=== PATIENT | female | born 1975 | race Two or more races ===

== ENCOUNTER 2017-04-27 11:54 | Emergency (ER) | payer SELFPAY ==
[~2017-04-27] VITALS: Ht 162.6 cm; Wt 63.5 kg
[2017-04-27 12:31] VITALS: BP 119/75
== END 2017-04-27 12:33 | disposition home or self-care (01) ==
LOC: ER 11:56
DX: G51.0 Bell's palsy (principal); Z90.89 Acquired absence of other organs
CPT/HCPCS: 99283; A4606; Z7610